=== PATIENT | male | born 1965 | race Caucasian/White ===

== ENCOUNTER 2017-12-02 07:49 | Emergency (ER) | payer MEDICARE | END 2017-12-02 09:03 | disposition home or self-care (01) | LOC: D.ER 07:49 | DX: M54.5 Low back pain (principal); G89.29 Other chronic pain; F17.200 Nicotine dependence, unspecified, uncomplicated ==

== ENCOUNTER 2018-01-17 12:47 | Emergency (ER) | payer OTHER ==
[2018-04-15 07:13] VITALS: BMI 37.9
== END 2018-01-17 14:20 | disposition home or self-care (01) ==
LOC: D.ER 12:47
DX: B35.3 Tinea pedis (principal); L30.9 Dermatitis, unspecified; L25.9 Unspecified contact dermatitis, unspecified cause; F17.200 Nicotine dependence, unspecified, uncomplicated; J45.909 Unspecified asthma, uncomplicated

== ENCOUNTER 2018-01-19 07:55 | Emergency (ER) | payer OTHER, MEDICAID ==
[2018-04-15 07:13] VITALS: BMI 37.9
== END 2018-01-19 09:03 | disposition home or self-care (01) ==
LOC: D.ER 07:55
DX: R21 Rash and other nonspecific skin eruption (principal); B35.3 Tinea pedis; F17.200 Nicotine dependence, unspecified, uncomplicated; J45.909 Unspecified asthma, uncomplicated

== ENCOUNTER 2018-01-22 18:17 | Emergency (ER) | payer OTHER, MEDICAID ==
[2018-04-15 07:13] VITALS: BMI 37.9
== END 2018-01-22 18:31 | disposition left against medical advice (07) ==
LOC: D.ER 18:17
DX: L50.9 Urticaria, unspecified (principal)

== ENCOUNTER 2018-04-15 06:00 | Outpatient (CLI) | payer OTHER, MEDICAID ==
[~2018-04-15] VITALS: Ht 172.7 cm; Wt 113.2 kg
[2018-04-15 06:44] LABS: BASOPHILS 0.3 % (0-2); EOSINOPHILS 0.5 % (0-7); HEMATOCRIT 43.3 % (42.0-54.0); HEMOGLOBIN 14.7 g/dL (13.5-17.5); IMMATURE GRANULOCYTES 0.9 % (0-5); LYMPHOCYTES 6.8 % (15-50); MCH 32.3 pg (26.0-34.0); MCHC 33.9 g/dL (31.0-37.0); MCV 95.2 fL (80.0-100.0); MEAN PLATELET VOLUME 9.8 fL (7.4-10.4); MONOCYTES 7.6 % (2-11); NEUTROPHILS 83.9 % (40-80); PLATELET COUNT 183 10x3/uL (130-400); RBC 4.55 10x6/uL (4.20-6.10); RDW 13.1 % (11.5-14.5); WBC 11.1 10x3/uL (4.8-10.8)
[2018-04-15 06:54] LABS: APTT 34.4 SECONDS (22.8-39.4); INR 0.95 (0.85-1.17); PROTIME 12.3 SECONDS (11.6-15.0)
[2018-04-15] MEDS ORDERED: DIFLUCAN50 MG PO (06:58)
[2018-04-15] MEDS ORDERED: HYDROXYZINE HCL50 MG PO (06:58)
[2018-04-15] MEDS ORDERED: PREDNISONE20 MG PO (06:59)
[2018-04-15] MEDS ORDERED: DAPSONE100 MG PO (06:59)
[2018-04-15] MEDS ORDERED: AMBIEN10 MG PO (07:00)
[2018-04-15] MEDS ORDERED: PROAIR HFA8.5 GM INH (07:01)
[2018-04-15 07:03] LABS: CALC OSMOLALITY 280 mosm/kg (275-300); CALCIUM 9.2 mg/dL (8.5-10.1); CARBON DIOXIDE 24.5 mmol/L (21.0-32.0); CHLORIDE - SERUM 104 mmol/L (98-107); GLUCOSE 108 mg/dL (74-106); SODIUM 139 mmol/L (136-145); UREA NITROGEN 18 mg/dL (7-18); eGFR NON AFRICAN AMERICAN 83 mL/min (90-120)
[2018-04-15 07:13] VITALS: BP 122/74; Ht 172.7 cm; Wt 113.2 kg
== END 2018-04-15 10:30 | disposition home or self-care (01) ==
LOC: D.SP 06:00 → D.CT 08:00 → D.SP 10:30
PROVIDERS: General Practice
DX: D72.829 Elevated white blood cell count, unspecified (principal); Z01.812 Encounter for preprocedural laboratory examination

== ENCOUNTER 2019-01-02 14:27 | Emergency (ER) | payer OTHER ==
[~2019-01-02] VITALS: Ht 172.7 cm; Wt 113.6 kg
[~2019-01-02 14:27] MED LIST: AMBIEN10 MG PO; DAPSONE100 MG PO; DIFLUCAN50 MG PO; HYDROXYZINE HCL50 MG PO; PREDNISONE20 MG PO; PROAIR HFA8.5 GM INH
[2019-01-02 14:34] VITALS: Ht 172.7 cm; Wt 113.6 kg
[2019-01-02 15:05] LABS: BASOPHILS 0.5 % (0-2); EOSINOPHILS 0.5 % (0-7); HEMATOCRIT 49.2 % (42.0-54.0); HEMOGLOBIN 17.7 g/dL (13.5-17.5); IMMATURE GRANULOCYTES 1.2 % (0-5); MCH 33.1 pg (26.0-34.0); MCV 92.1 fL (80.0-100.0); MEAN PLATELET VOLUME 9.7 fL (7.4-10.4); MONOCYTES 10.1 % (2-11); NEUTROPHILS 66.7 % (40-80); PLATELET COUNT 197 10x3/uL (130-400); RBC 5.34 10x6/uL (4.20-6.10); RDW 12.5 % (11.5-14.5); WBC 5.9 10x3/uL (4.8-10.8)
[2019-01-02 16:30] LABS: ANION GAP 18.1 mmol/L (8-16); BILIRUBIN - TOTAL 0.43 mg/dL (0.2-1.3); CALCIUM 8.2 mg/dL (8.5-10.1); CARBON DIOXIDE 21.3 mmol/L (21.0-32.0); CREATININE - SERUM 1.3 mg/dL (0.6-1.3); POTASSIUM - SERUM 3.4 mmol/L (3.5-5.1); PROTEIN - SERUM 6.7 g/dL (6.4-8.2)
[2019-01-02 17:36] LABS: AMYLASE - SERUM 109 U/L (25-115); LIPASE 499 U/L (73-393)
[2019-01-02 17:39] LABS: TROPONIN-I < 0.017 ng/mL (0.000-0.060)
[2019-01-02] MEDS ORDERED: TAMIFLU75 MG PO (18:44)
[2019-01-02] MEDS ORDERED: ZOFRAN ODT4 MG/UDTAB PO (18:45)
[2019-01-02] MEDS ORDERED: TYLENOL W/CODEI1 TAB PO (18:45)
[2019-01-02 19:01] VITALS: BP 99/45
== END 2019-01-02 19:03 | disposition home or self-care (01) ==
LOC: D.ER 14:27
PROVIDERS: Family Medicine
DX: J09.X2 Influenza due to identified novel influenza A virus with other respiratory manifestations (principal); R11.2 Nausea with vomiting, unspecified

== ENCOUNTER 2019-06-22 10:33 | Emergency (ER) | payer OTHER ==
[~2019-06-22] VITALS: Ht 172.7 cm; Wt 117.3 kg
[~2019-06-22 10:33] MED LIST changes: +TAMIFLU75 MG PO; +TYLENOL W/CODEI1 TAB PO; +ZOFRAN ODT4 MG/UDTAB PO
[2019-06-22 10:37] VITALS: Ht 172.7 cm; Wt 117.3 kg
[2019-06-22] MEDS ORDERED: OXYCONTIN10 MG PO (10:43)
[2019-06-22 12:22] VITALS: BP 150/65
== END 2019-06-22 12:05 | disposition home or self-care (01) ==
LOC: D.ER 10:33
DX: M54.16 Radiculopathy, lumbar region (principal)